=== PATIENT | female | born 1985 | race Caucasian/White ===

== ENCOUNTER 2021-09-28 05:34 | Emergency (ER) | payer OTHER ==
[2021-09-28] MEDS ORDERED: OCTYL 2-CYANOACRYLATE 1 EACH TP ONE ×2 (06:04→06:30)
[2021-09-28 06:26] VITALS: BP 159/87
[2021-09-28] MEDS ORDERED: TETANUS/DIPHTHERIA TOXOID [ADULT] 0.5 ML VIAL IM ONE (06:30)
[2021-09-28] MEDS ORDERED: AMOX1TAB16 PO (06:44)
[2021-09-28] MEDS ORDERED: DICL50TA9 PO (06:44)
== END 2021-09-28 06:47 | disposition home or self-care (01) ==
LOC: EDH 05:34
DX: S01.85XA Open bite of other part of head, initial encounter (principal); F17.210 Nicotine dependence, cigarettes, uncomplicated; X58.XXXA Exposure to other specified factors, initial encounter; Y93.89 Activity, other specified; Y92.89 Other specified places as the place of occurrence of the external cause; Y99.8 Other external cause status
CPT/HCPCS: 12011; 70360; 90471; 90714